=== PATIENT | female | born 1935 | race Two or more races ===

== ENCOUNTER 2018-06-22 00:19 | Emergency (ER) | payer OTHER ==
[~2018-06-22] VITALS: Ht 149.9 cm; Wt 47.2 kg
[2018-06-22] MEDS ORDERED: NABUMETONE750 MG PO (03:51)
== END 2018-06-22 04:08 | disposition home or self-care (01) ==
LOC: ER 00:19
DX: M54.5 Low back pain (principal)

== ENCOUNTER 2019-02-06 22:43 | Emergency (ER) | payer OTHER ==
[~2019-02-06] VITALS: Ht 154.9 cm; Wt 49.9 kg
[~2019-02-06 22:43] MED LIST: NABUMETONE750 MG PO
[2019-02-06] MEDS ORDERED: SYNTHROID125 MCG (23:32)
[2019-02-07] MEDS ORDERED: ORPHENADRINE C100 MG PO (00:52)
[2019-02-07] MEDS ORDERED: KETO10TA2 PO (00:52)
== END 2019-02-07 00:58 | disposition home or self-care (01) ==
LOC: ER 22:43
DX: M54.2 Cervicalgia (principal); M62.838 Other muscle spasm

== ENCOUNTER 2019-02-08 13:07 | Outpatient (CLI) | payer OTHER ==
[~2019-02-08 13:07] MED LIST changes: +KETO10TA2 PO; +ORPHENADRINE C100 MG PO; +SYNTHROID125 MCG
== END 2019-02-08 13:17 | disposition home or self-care (01) ==
LOC: RAD 501 13:07
DX: M54.2 Cervicalgia (principal)

== ENCOUNTER 2019-04-18 15:17 | Emergency (ER) | payer OTHER ==
[~2019-04-18] VITALS: Ht 152.4 cm; Wt 54.4 kg
== END 2019-04-18 18:32 | disposition home or self-care (01) ==
LOC: ER 15:17
DX: M43.17 Spondylolisthesis, lumbosacral region (principal); M54.5 Low back pain

== ENCOUNTER 2019-05-19 13:04 | Emergency (ER) | payer OTHER ==
[~2019-05-19] VITALS: Ht 149.9 cm; Wt 49.9 kg
== END 2019-05-19 16:06 | disposition home or self-care (01) ==
LOC: ER 13:04
DX: B34.9 Viral infection, unspecified (principal)

== ENCOUNTER 2019-09-18 03:34 | Emergency (ER) | payer OTHER ==
[~2019-09-18] VITALS: Ht 149.9 cm; Wt 49.9 kg
== END 2019-09-18 10:47 | disposition home or self-care (01) ==
LOC: ER 03:34
DX: M11.232 Other chondrocalcinosis, left wrist (principal); M25.532 Pain in left wrist; R60.0 Localized edema

== ENCOUNTER 2019-10-22 17:59 | Emergency (ER) | payer OTHER ==
[~2019-10-22] VITALS: Ht 152.4 cm; Wt 47.2 kg
[2019-10-23] MEDS ORDERED: MOBIC15 MG PO (02:24)
== END 2019-10-23 02:41 | disposition home or self-care (01) ==
LOC: ER 17:59 → CPU-OBS 18:31 → ER 18:31
DX: M94.0 Chondrocostal junction syndrome [Tietze] (principal)

== ENCOUNTER 2021-02-21 10:52 | Outpatient (CLI) | payer OTHER ==
[~2021-02-21 10:52] MED LIST changes: +MOBIC15 MG PO
== END 2021-02-21 10:58 | disposition home or self-care (01) ==
LOC: LAB 10:52
PROVIDERS: ATTEND Orthopaedic Surgery
DX: D68.8 Other specified coagulation defects (principal); N39.0 Urinary tract infection, site not specified

== ENCOUNTER 2021-09-12 14:20 | Emergency (ER) | payer OTHER ==
[~2021-09-12] VITALS: Ht 124.5 cm; Wt 51.7 kg
== END 2021-09-12 18:31 | disposition home or self-care (01) ==
LOC: ER 14:20
DX: L03.113 Cellulitis of right upper limb (principal)